=== PATIENT | male | born 1975 | race Caucasian/White ===

== ENCOUNTER 2019-06-30 13:57 | Emergency (ER) | payer OTHER ==
[~2019-06-30] VITALS: Ht 182.9 cm; Wt 77.1 kg
[~2019-06-30 13:57] MED LIST: NORCO 5-325 TA1 EACH PO
[2019-06-30 16:28] VITALS: BP 135/79
== END 2019-06-30 16:29 | disposition home or self-care (01) ==
LOC: M.ERS 13:57
DX: S61.211A Laceration without foreign body of left index finger without damage to nail, initial encounter (principal); Z91.010 Allergy to peanuts; W26.8XXA Contact with other sharp object(s), not elsewhere classified, initial encounter; Y93.89 Activity, other specified; Y92.89 Other specified places as the place of occurrence of the external cause; Y99.8 Other external cause status